=== PATIENT | male | born 1975 | race Caucasian/White ===

== ENCOUNTER 2023-05-01 14:48 | Emergency (ER) | payer OTHER ==
[2023-05-01] MEDS: Lidocaine 1% 5 ML VIAL INJECT ONE (15:09)
[2023-05-01] MEDS: Diphtheria,Pertussis(Acell),Tetanus Vaccine 0.5 ML Syringe IM ONE (15:17)
[2023-05-01] MEDS: Bacitracin Oint 1 GM U/D Packet TOP ONE (15:19)
== END 2023-05-01 15:45 | disposition home or self-care (01) ==
LOC: LL.ED 14:48
DX: S61.411A Laceration without foreign body of right hand, initial encounter (principal); Z88.0 Allergy status to penicillin; Z23 Encounter for immunization
CPT/HCPCS: 12001; 90471; 90715; 99282-25; 99283; J3490

== ENCOUNTER 2025-08-06 15:27 | Emergency (ER) | payer OTHER ==
[2025-08-06] MEDS ORDERED: Lidocaine 2% with EPINEPHrine 1:100,000 20 ML MDV INJECT ONE ×2 (15:43)
== END 2025-08-06 16:45 | disposition home or self-care (01) ==
LOC: LL.ED 15:27
DX: S61.412A Laceration without foreign body of left hand, initial encounter (principal); Z88.0 Allergy status to penicillin; Z79.899 Other long term (current) drug therapy; I10 Essential (primary) hypertension; F17.200 Nicotine dependence, unspecified, uncomplicated; W26.8XXA Contact with other sharp object(s), not elsewhere classified, initial encounter
CPT/HCPCS: 12002; 99282